=== PATIENT | female | born 1995 ===

== ENCOUNTER 2020-09-03 11:19 | Inpatient (IN) ==
[2020-09-03] MEDS ORDERED: LABETALOL 200 MG TABLET PO ONE (11:30)
[2020-09-03 11:56] LABS: Basophils % 0.3 % (0.0-0.8); Eosinophils # 0.1 10*3/uL (0.0-0.87); Eosinophils % 0.7 % (0.00-10.9); Hematocrit 34.9 VOL% (35.7-47.0); Hemoglobin 11.4 GM/DL (12.0-16.0); Immature Granulocytes % 0.5 %; Immature Granulocytes Absolute 0.04 #; Lymphocytes # 1.5 10*3/uL (1.4-4.0); Lymphocytes % 19.8 % (21.3-54.2); Mean Corpuscular HGB Conc 32.7 GM/DL (32-36); Mean Corpuscular Volume 89.3 FL (87-102); Neutrophils % 68.7 % (38.7-73.9); Platelet Count 256 T/CUMM (130-400); Red Blood Count 3.91 MC/CUMM (3.8-5.5); Red Cell Distribution Width 12.6 % (9.3-17.3); White Blood Count 7.6 T/CUMM (4-12)
[2020-09-03 12:10] LABS: INR 0.9; PT Patient Result 10.2 SECS (10.5-12.0)
[2020-09-03 12:24] LABS: Bacteria,Urine Occasional /HPF (Few); Bilirubin,Urine Negative (Negative); Blood, Urine Negative (Negative); Glucose,Urine (UA) >=500 mg/dL (Negative); Ketones,Urine Negative (Negative); Mucus,Urine Occasional /LPF (Occasional); Nitrite,Urine Negative (Negative); Protein,Urine Negative; Squamous Epithelial Cell,Urine Few /HPF (0-10); Urine Appearance CLEAR (Clear); Urine Color Yellow (Yellow); Urine Specific Gravity 1.035 (1.001-1.035); Urine Urobilinogen < 2.0 EU/DL (0.2-1.0)
[2020-09-03 12:30] LABS: Alanine Aminotransferase 15 U/L (13-56); Albumin 2.1 G/DL (3.4-5.0); Alkaline Phosphatase 238 U/L (45-117); Aspartate Amino Transferase 13 U/L (0-37); Bilirubin,Direct < 0.050 MG/DL (0.0-0.20); Bilirubin,Total < 0.39 MG/DL (0.2-1.0); Blood Urea Nitrogen 12 MG/DL (7-18); Carbon Dioxide 22 MMOL/L (21-32); Estimated Glom Filtration Rate 171 ML/MIN; Glucose 352 MG/DL (74-106); Osmolality,Calculated 283.1 MOS/KG (273-304); Potassium 4.2 MMOL/L (3.5-5.1); Sodium 135 MMOL/L (136-145); Total Protein 6.3 G/DL (6.4-8.2); Uric Acid 5.1 MG/DL (2.6-6.0)
[2020-09-03 13:00] LABS: Protein/Creatinine Ratio,Urine 0.3 RATIO
[2020-09-03] MEDS: LACTATED RINGERS 1,000 ML IV SCH ×2 (14:43→17:38)
[2020-09-04] MEDS ORDERED: LACTATED RINGERS 500 ML IV PRN (05:29)
[2020-09-04] MEDS ORDERED: BUTORPHANOL 2 MG/ML VIAL IV PRN (05:29)
[2020-09-04] MEDS ORDERED: ONDANSETRON 4 MG/2 ML VIAL IV PRN ×2 (05:29→10:20)
[2020-09-04] MEDS ORDERED: MEPERIDINE 50 MG/1 ML VIAL IV PRN (05:29)
[2020-09-04] MEDS ORDERED: FAMOTIDINE 20 MG/2 ML VIAL IV SCH (05:30)
[2020-09-04] MEDS ORDERED: LACTATED RINGERS 1,000 ML IV SCH ×2 (05:30→10:30)
[2020-09-04] MEDS ORDERED: CITRIC ACID/SODIUM CITRATE 30 ML UDCUP PO ONE (05:49)
[2020-09-04] MEDS: LABETALOL 200 MG TABLET PO SCH ×2 (06:17→20:38)
[2020-09-04] MEDS ORDERED: OXYTOCIN/LR 30 UNIT/1,000 ML BAG IV ONE (07:04)
[2020-09-04] MEDS ORDERED: OXYTOCIN 10 UNIT/ML VIAL IM ONE (07:04)
[2020-09-04] MEDS ORDERED: ACETAMINOPHEN INJ 1,000 MG/100 ML VIAL IV ONE (09:24)
[2020-09-04] MEDS ORDERED: PHENYLEPHRINE 1 MG/10 ML SYRINGE IV ONE (09:24)
[2020-09-04] MEDS ORDERED: BUPIVACAINE SPINAL 0.75% 2 ML AMP SPINAL ONE (09:24)
[2020-09-04] MEDS ORDERED: ONDANSETRON 4 MG/2 ML VIAL ONE (09:24)
[2020-09-04 09:25] LABS: Cord Venous Blood HCO3 24.5 MMOL/L; Cord Venous Blood PCO2 68.3 MMHG; Cord Venous Blood PO2 22.9 MMHG
[2020-09-04 09:43] LABS: Blood, Urine Negative (Negative); Glucose,Urine (UA) Negative (Negative); Ketones,Urine 5 mg/dL (Negative); Mucus,Urine Many /LPF (Occasional); Nitrite,Urine Negative (Negative); Protein,Urine 100 MG/DL; RBC,Urine 4 /HPF (0-4); Squamous Epithelial Cell,Urine Occasional /HPF (0-10); Urine Appearance Slightly Hazy (Clear); Urine Color Amber (Yellow); Urine Specific Gravity 1.029 (1.001-1.035)
[2020-09-04 09:44] LABS: Bilirubin,Urine Small mg/dL (Negative)
[2020-09-04] MEDS ORDERED: OXYTOCIN/LR 20 UNIT/1,000 ML BAG IV ONE (10:20)
[2020-09-04] MEDS ORDERED: RHO(D) IMMUNE GLOBULIN 300 MCG SYRINGE IM ONE (10:20)
[2020-09-04] MEDS ORDERED: ACETAMINOPHEN 325 MG TABLET PO PRN (10:20)
[2020-09-04] MEDS: KETOROLAC 30 MG/1 ML VIAL IV SCH ×2 (14:18→20:37)
[2020-09-04] MEDS ORDERED: FUROSEMIDE 40 MG/4 ML VIAL IV SCH (14:30)
[2020-09-04] MEDS: FUROSEMIDE 40 MG/4 ML VIAL IV SCH ×2 (14:47→20:35)
[2020-09-04] MEDS: ACETAMINOPHEN 500 MG TABLET PO SCH ×2 (15:45→22:00)
[2020-09-04] MEDS ORDERED: LABETALOL 200 MG TABLET ONE (20:32)
[2020-09-04] MEDS: DOCUSATE SODIUM 100 MG CAPSULE PO SCH (20:37)
[2020-09-05] MEDS: FUROSEMIDE 40 MG/4 ML VIAL IV SCH (02:34)
[2020-09-05] MEDS: KETOROLAC 30 MG/1 ML VIAL IV SCH ×2 (02:34→09:11)
[2020-09-05] MEDS: ACETAMINOPHEN 500 MG TABLET PO SCH (04:16)
[2020-09-05] MEDS: SIMETHICONE CHEW 80 MG TABLET PO PRN ×2 (09:09→19:21)
[2020-09-05] MEDS: DOCUSATE SODIUM 100 MG CAPSULE PO SCH ×3 (09:09→23:10)
[2020-09-05] MEDS: MULTIVITAMIN (PRENATAL) TABLET PO SCH (09:10)
[2020-09-05] MEDS: LABETALOL 200 MG TABLET PO SCH ×2 (09:10→21:24)
[2020-09-05 16:06] LABS: Basophils % 0.2 % (0.0-0.8); Eosinophils # 0.1 10*3/uL (0.0-0.87); Eosinophils % 0.8 % (0.00-10.9); Hematocrit 29.7 VOL% (35.7-47.0); Hemoglobin 10.3 GM/DL (12.0-16.0); Immature Granulocytes % 0.4 %; Immature Granulocytes Absolute 0.04 #; Lymphocytes # 1.3 10*3/uL (1.4-4.0); Lymphocytes % 12.8 % (21.3-54.2); Mean Corpuscular HGB Conc 34.7 GM/DL (32-36); Mean Corpuscular Volume 86.8 FL (87-102); Mean Platelet Volume 10.2 FL (9.6-12.0); Monocytes % 9.8 % (1.7-12.7); Platelet Count 237 T/CUMM (130-400); Red Blood Count 3.42 MC/CUMM (3.8-5.5); White Blood Count 10.1 T/CUMM (4-12)
[2020-09-05] MEDS: METOCLOPRAMIDE 10 MG TABLET PO SCH ×3 (17:08→23:13)
[2020-09-05] MEDS: MAGNESIUM HYDROXIDE SUSP 30 ML UDCUP PO PRN (19:20)
[2020-09-05] MEDS: IBUPROFEN 800 MG TABLET PO PRN (19:21)
[2020-09-05] MEDS ORDERED: diphenhydrAMINE CAP 25 MG CAPSULE PO PRN (21:23)
[2020-09-06] MEDS: IBUPROFEN 800 MG TABLET PO PRN (04:05)
[2020-09-06] MEDS: METOCLOPRAMIDE 10 MG TABLET PO SCH ×2 (06:28→15:14)
[2020-09-06] MEDS: LABETALOL 200 MG TABLET PO SCH (10:25)
[2020-09-06] MEDS: SIMETHICONE CHEW 80 MG TABLET PO PRN (10:25)
[2020-09-06] MEDS: DOCUSATE SODIUM 100 MG CAPSULE PO SCH (10:25)
[2020-09-06] MEDS: MAGNESIUM HYDROXIDE SUSP 30 ML UDCUP PO PRN (10:25)
[2020-09-06] MEDS: MULTIVITAMIN (PRENATAL) TABLET PO SCH (10:25)
[2020-09-06 12:08] VITALS: BP 133/68
[2020-09-06] MEDS ORDERED: DIPH/TET/ACEL PERT BOOSTER VACCINE 0.5 ML VIAL IM ONE (12:15)
== END 2020-09-06 14:00 | disposition home or self-care (01) | DRG 540 ==
LOC: N.LDOUT 11:19 → N.LD 11:21 → N.OB 09-05 10:40
PROVIDERS: ADMIT Obstetrics & Gynecology; ATTEND Obstetrics & Gynecology
PROC: LDCSECT (ICD-10-PCS; 2020-09-04 09:00)